=== PATIENT | female | born 1940 | race Caucasian/White ===

== ENCOUNTER 2016-11-24 16:23 | Inpatient (IN) | payer OTHER, MEDICARE ==
[~2016-11-24] VITALS: Ht 208.3 cm; Wt 63.5 kg
[2016-11-24 16:26] VITALS: O2SAT 100
[2016-11-24] MEDS ORDERED: MORPHINE SULFATE 8 MG/ML INJ ONE (16:31)
[2016-11-24] MEDS ORDERED: ONDANSETRON HCL 4 MG/2 ML VIAL ONE (16:33)
[2016-11-24] MEDS ORDERED: DIPHTH/TETANUS/ACEL PERTUSSIS (BOOSTER) 0.5 ML VIAL/PFS IM ONE (16:47)
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
[2016-11-24] MEDS ORDERED: IOHEXOL 350 MG/ML 10 ML VIAL (for RAD DIAG) IV ONE (17:02)
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
[2016-11-24 17:13] LABS: AUTOMATED NEUTROPHIL # 15.3 TH/MM3 (1.8-7.7); BASOPHIL % 0.2 % (0.0-2.0); EOSINOPHIL # 0.3 TH/MM3 (0-0.4); EOSINOPHIL % 1.5 % (0.0-4.0); HEMATOCRIT 39.5 % (35.0-46.0); HEMO FLAGS DIFF FINAL; I-STAT POTASSIUM 3.9 MMOL/L (3.5-4.9); LYMPHOCYTE # 1.6 TH/MM3 (1.0-4.8); MEAN CELL VOLUME 88.9 FL (80.0-100.0); MEAN CORPUSCULAR HEMOGLOBIN 29.8 PG (27.0-34.0); MEAN CORPUSCULAR HGB CONC 33.5 % (32.0-36.0); MONO % 4.6 % (0.0-8.0); NEUT % 84.7 % (16.0-70.0); PLATELET COUNT 200 TH/MM3 (150-450); RED BLOOD COUNT 4.44 MIL/MM3 (4.00-5.30); RED CELL DISTRIBUTION WIDTH 13.2 % (11.6-17.2); WHITE BLOOD COUNT 18.1 TH/MM3 (4.0-11.0)
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
[2016-11-24 17:30] VITALS: BP 179/79; PULSE 82; RESP 18; TEMP 98.2; O2SAT 97
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
[2016-11-24 17:36] LABS: APTT (PATIENT) 32.3 SEC (24.3-30.1); PROTHROMBIN TIME - PATIENT 22.2 SEC (9.8-11.6)
[2016-11-24] MEDS ORDERED: SODIUM CHLOR 0.9% 1000 ML INJ 1,000 ML IV SCH (17:51)
[2016-11-24] MEDS ORDERED: SODIUM CHLORIDE 0.9% FLUSH 5 ML FLUSH IVF PRN (18:00)
[2016-11-24] MEDS ORDERED: ACETAMINOPHEN/HYDROcodone 325 MG/5 MG TAB PO PRN (18:00)
[2016-11-24] MEDS ORDERED: Post-op Orders (for Pharmacy) MISC XX ONE (18:00)
[2016-11-24] MEDS ORDERED: MORPHINE SULFATE 4 MG/ML INJ IV PRN (18:00)
[2016-11-24] MEDS ORDERED: NALOXONE HCL 0.4 MG/ML AMP IV PRN (18:00)
[2016-11-24] MEDS ORDERED: ONDANSETRON HCL 4 MG/2 ML VIAL IV PRN (18:00)
[2016-11-24 18:03] VITALS: O2SAT 96
[2016-11-24 18:05] VITALS: O2SAT 96
[2016-11-24] MEDS ORDERED: DILT120T PO (18:06)
[2016-11-24] MEDS ORDERED: LOVA20TA PO (18:07)
[2016-11-24] MEDS ORDERED: DILT1TAB4 PO (18:07)
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
[2016-11-24] MEDS ORDERED: LOSA50TA PO (18:10)
[2016-11-24] MEDS ORDERED: OMEG100010 (18:10)
[2016-11-24] MEDS ORDERED: OXYB5TAB10 PO (18:10)
[2016-11-24] MEDS ORDERED: MULT-116 PO (18:10)
[2016-11-24] MEDS ORDERED: ESTE500T6 (18:10)
[2016-11-24] MEDS ORDERED: WARF-23 PO (18:10)
[2016-11-24] MEDS ORDERED: B COTAB6 PO (18:10)
[2016-11-24 19:30] VITALS: BP 152/65; PULSE 87; RESP 16; O2SAT 99
[2016-11-24] MEDS ORDERED: PANTOPRAZOLE SOD 40 MG DELAYED RELEASE TAB PO SCH (20:00)
[2016-11-24 20:10] VITALS: BP 159/55; PULSE 88; RESP 19; TEMP 96; O2SAT 92
[2016-11-24] MEDS: SODIUM CHLORIDE 0.9% FLUSH 5 ML FLUSH IVF SCH (21:00)
[2016-11-24] MEDS: oxyCODONE/ACETAMINOPHEN 5 MG/325 MG TAB PO PRN (22:59)
[2016-11-25] VITALS (7 sets, daily range): BP systolic 132–160; BP diastolic 50–81; PULSE 82–86; RESP 16–20; TEMP 95.6–98.5; O2SAT 92–96
[2016-11-25 05:09] LABS: HEMATOCRIT 33.9 % (35.0-46.0); MEAN CELL VOLUME 88.9 FL (80.0-100.0); MEAN CORPUSCULAR HEMOGLOBIN 29.6 PG (27.0-34.0); MEAN CORPUSCULAR HGB CONC 33.3 % (32.0-36.0); PLATELET COUNT 155 TH/MM3 (150-450); RED BLOOD COUNT 3.81 MIL/MM3 (4.00-5.30); REVIEW FLAG FINAL; WHITE BLOOD COUNT 8.3 TH/MM3 (4.0-11.0)
[2016-11-25 05:14] LABS: BICARBONATE 28.2 MEQ/L (21.0-32.0); POTASSIUM 3.6 MEQ/L (3.5-5.1)
[2016-11-25] MEDS: oxyCODONE/ACETAMINOPHEN 5 MG/325 MG TAB PO PRN ×2 (06:21→14:31)
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
[2016-11-25] MEDS ORDERED: DILTIAZEM-CD 240 MG CAP ER PO SCH (09:00)
[2016-11-25] MEDS ORDERED: LOSARTAN 50 MG TAB PO SCH (09:00)
[2016-11-25] MEDS ORDERED: DOCUSATE SODIUM 50 MG/SENNA 8.6 MG TAB PO SCH (10:00)
[2016-11-25] MEDS ORDERED: MAGNESIUM HYDROXIDE SUSP 30 ML CUP PO SCH (10:00)
[2016-11-25] MEDS ORDERED: OXYBUTYNIN CHLORIDE 5 MG TAB PO SCH (14:00)
[2016-11-25] MEDS: SODIUM CHLORIDE 0.9% FLUSH 5 ML FLUSH IVF SCH (14:37)
[2016-11-25] MEDS ORDERED: OXYC1TAB63 PO (14:58)
[2016-11-25] MEDS ORDERED: WARFARIN SOD 5 MG TAB PO SCH (16:00)
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
--- NOTE | 2016-11-25 22:52 | EKG ---
Date Performed: 11/24/2016 Time Performed: 17:16:26 PTAGE: 89 years EKG: ATRIAL FIBRILLATION INCOMPLETE RIGHT BUNDLE BRANCH BLOCK ST DEVIATION AND MODERATE T-WAVE A BNORMALITY, CONSIDER ANTEROLATERAL ISCHEMIA ST DEVIATION AND MODERATE T-WAVE ABNORMALITY, CONSIDER IN FERIOR ISCHEMIA ABNORMAL ECG INTERPRETATION BASED ON A DEFAULT AGE OF 38 YEARS NO PREVIOUS TRACING DOCTOR: Jennifer Witt Interpretating Date/Time 11/25/2016 22:46:39
[2016-11-26] MEDS ORDERED: LOSARTAN 50 MG TAB PO SCH (09:00)
[2016-11-26] MEDS ORDERED: DILTIAZEM-CD 240 MG CAP ER PO SCH (09:00)
[2016-11-26] MEDS ORDERED: PRAVASTATIN SOD 20 MG TAB PO SCH (09:00)
== END 2016-11-25 18:51 | disposition home or self-care (01) | DRG 185 ==
LOC: NEPI 16:23 → NEDA 17:29 → EDBD 17:29 → NEDA 18:25 → N06A 20:05
PROVIDERS: ADMIT Surgery; ATTEND Surgery
DX: S22.42XA Multiple fractures of ribs, left side, initial encounter for closed fracture (principal); I48.91 Unspecified atrial fibrillation; Z79.01 Long term (current) use of anticoagulants; S00.81XA Abrasion of other part of head, initial encounter; S00.83XA Contusion of other part of head, initial encounter; V49.9XXA Car occupant (driver) (passenger) injured in unspecified traffic accident, initial encounter; Y92.410 Unspecified street and highway as the place of occurrence of the external cause; H91.90 Unspecified hearing loss, unspecified ear; Z95.0 Presence of cardiac pacemaker
CPT/HCPCS: 70450; 71010; 71260; 72125; 73120; 73600; 74177; 80048; 82435; 82565; 82947; 84132; 84295; 84484; 84520; 85025; 85027; 85610; 85730; 86850; 86900; 86901; 90471; 90715; 93005; 94150; 94667; 94668; 96374; 99291; G0390; J2270; J2405; J7030; Q9967